=== PATIENT | female | born 1965 | race Caucasian/White ===

== ENCOUNTER 2016-05-22 19:37 | Emergency (ER) | payer OTHER ==
[~2016-05-22] VITALS: Ht 170.2 cm; Wt 68.0 kg
[2016-05-23 00:56] VITALS: BP 124/84
== END 2016-05-23 01:34 | disposition home or self-care (01) ==
LOC: EDBD 19:37 → ER 19:41
DX: S93.401A Sprain of unspecified ligament of right ankle, initial encounter (principal); S09.90XA Unspecified injury of head, initial encounter; R51 Headache; Z88.6 Allergy status to analgesic agent; Z85.3 Personal history of malignant neoplasm of breast; W01.0XXA Fall on same level from slipping, tripping and stumbling without subsequent striking against object, initial encounter; Y93.89 Activity, other specified; Y99.8 Other external cause status; Y92.821 Forest as the place of occurrence of the external cause
CPT/HCPCS: 70450; 73610; 73630